=== PATIENT | female | born 1935 | race Caucasian/White ===

== ENCOUNTER 2017-07-27 07:15 | Emergency (ER) | payer OTHER, MEDICARE ==
[~2017-07-27] VITALS: Ht 167.6 cm; Wt 113.4 kg
[~2017-07-27 07:15] MED LIST: ALLOPURINOL300 M1 PO; Benadryl TOP; CLEOCIN HCL300 MG PO; COLCRYS0.6 MG PO; DULOXETINE HCL30 MG PO; ELIQUIS5 M1 PO; ELIQUIS5 MG PO; GABAPENTIN300 MG PO; KEFLEX500 MG PO; LOPRESSOR50 M1 PO; METOPROLOL TART50 M1 PO; METOPROLOL TART50 MG PO; NORCO 325 MG-51 TAB PO; PREDNISONE1 MG PO; PREDNISONE5 M1 PO; PREMARIN 0.60.625 MG PO; PREMARIN 1.251.25 MG PO; TRIAMTERENE AND1 CAP PO; TRIAMTERENE-HC1 EAC2 PO; TRIAMTERENE/HCT1 TA2 PO; VITAMIN B-121000 MC3 PO; VITAMIN B-12500 MC1 SL; ZOFRAN ODT4 MG SL
[2017-07-27 08:14] LABS: ABSOLUTE BASOPHIL COUNT 0.1 /CUMM (0.0-0.2); ABSOLUTE EOSINOPHIL COUNT 0.3 /CUMM (0.0-0.7); ABSOLUTE GRANULOCYTE CT 8.1 /CUMM (1.4-6.5); ABSOLUTE LYMPH COUNT 2.2 /CUMM (1.2-3.4); ABSOLUTE MONOCYTE COUNT 1.1 /CUMM (0.10-0.60); BASOPHIL % 0.6 % (0.0-2.0); EOSINOPHIL % 2.4 % (0-5); GRANULOCYTE % 68.3 % (42.2-75.2); HEMATOCRIT 43.4 % (37-47); MEAN CORPUSCULAR HGB 29.7 PG (27.0-31.0); MEAN CORPUSCULAR HGB CONC 32.7 G/DL (33.0-37.0); MEAN CORPUSCULAR VOLUME 91.1 FL (81.0-99.0); MEAN PLATELET VOLUME 9.1 FL (7.4-10.4); PLATELET COUNT 248 /CUMM (130-400); RBC DISTRIBUTION WIDTH 15.7 % (11.5-14.5); RED BLOOD CELL CT 4.77 /CUMM (4.20-5.40); WHITE BLOOD CELL COUNT 11.8 /CUMM (4.8-10.8)
--- NOTE | 2017-07-27 08:45 | ED SYNCOPE COMPLAINT ---
History of Present Illness General Chief Complaint: General Adult Stated Complaint: BIBA LOW BP Source: patient, family Exam Limitations: no limitations Vital Signs & Intake/Output Vital Signs & Intake/Output Vital Signs Date Time Temp Pulse Resp B/P B/P Pulse O2 O2 Flow FiO2 Mean Ox Delivery Rate 07/27 1450 70 18 150/60 100 Room Air 07/27 1003 97.2 72 18 148/65 98 ED Intake and Output 07/28 0000 07/27 1200 Intake Total 500 Output Total 400 Balance 100 Intake, IV 500 Output, Urine 400 Patient 250 lb Weight Weight Reported by Patient Measurement Method Allergies Coded Allergies: shellfish derived (Severe, ANAPHYLAXIS 02/02/16) Penicillins (RASH 02/02/16) Sulfa (Sulfonamide Antibiotics) (RASH 02/02/16) Reconcile Medications Allopurinol 300 MG TABLET 1 TAB PO DAILY GOUT (Reported) Apixaban (Eliquis) 5 MG TABLET 1 TAB PO BID BLOOD THINNER (Reported) Duloxetine HCl 30 MG CAPSULE.DR 1 TAB PO DAILY DEPRESSION (Reported) Metoprolol Tartrate (Lopressor) 50 MG TABLET 1 TAB PO BID HEART HEALTH Prednisone 5 MG TABLET 1 TAB PO DAILY ARTHRITIS (Reported) Triamterene/Hydrochlorothiazid (Triamterene-Hctz 75-50 MG Tab) 75 MG-50 MG TABLET 0.5 TAB PO DAILY EDEMA (Reported) Triage Note: 81 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 PER EMS, PT HAS HX OF SAME RELATED TO LOW B/P. PT ARRIVES ALERT AND ORIENTED X 4, SPEAKING CLEARLY WITH NO DISTRESS OR DEFICITS NOTED. PT STATES SHE GOT UP FROM THE NIGHT, MOVED TOO QUICKLY AND "PASSED OUT". DENIES FEELING SYMPTOMS PRIOR TO SYNCOPE. DENIES ANY SYMPTOMS AT PRESENT. DENIES C/P. DENIES SOB. DENIES N/V/D. REPORTS NORMAL APPETITE/PO INTAKE. UPON ARRIVAL, UP TO COMMODE AND VOIDS 400 ML DARK CLEAR URINE. RESIDENT INTO EVAL Triage Nurses Notes Reviewed? yes Timing: single episode today Precipitating Factors: lightheadedness Context: became dizzy/fainted Loss of Consciousness: brief (seconds) Associated Symptoms: weakness Patient currently breastfeeds: No HPI: 81yoF w/ hx of hypotension, syncope, Afib (on Elliquis), Gout and HTN who presented s/p 60-90s witnessed syncopal episode. Patient is usually helped out of bed by her daughter in the mornings. She got out of bed too fast this morning and started complaining of mild dizziness. Her daughter helped her back into the bed. She started having repetitive R arm movements and became unresponsive for 60-90s. Event was witnessed without any incontinence, doll's eyes, foaming or clonic movements. She denies anyinjuries, pallor, diaphoresis, chest pain, palpitations , SOB but endorsed weakness, light headedness and inability to respond although she could hear her daughter. Although slow, she was completely A&Ox4. Prior to this event, she had not been sick and currently at this visit she has no complaints or B-symptoms. At baseline she sometimes needs a cane for ambulation independent in her iADLs Her medications include Elliquis, Metop, prednisone and allopurinol. Shx include hysterectomy, appendicitis and cholecystectomy. She has no toxic habits Family (daughter and son-in-law) at bedside (Nimesh Kirby) Past History Travel History Traveled to [place] past 21 day No Medical History Any Pertinent Medical History? see below for history Neurological: vertigo EENT: benign positional vertigo, hearing loss, INNER EAR PROBLEMS Cardiovascular: hypertension, RAPID HEARTBEAT-NOT AFIB! Respiratory: NONE Gastrointestinal: diverticulitis Hepatic: NONE Renal: NONE Musculoskeletal: disk herniation, gout, osteoarthritis, sciatica, REX KNEE REPL Psychiatric: depression Endocrine: NONE Blood Disorders: DVT Cancer(s): NONE METAL RIVETER/Reproductive: NONE History of MRSA: No History of VRE: No History of CDIFF: No Pneumonia Vaccine: 03/08/15 Influenza Vaccine: 02/27/14 Surgical History Surgical History: non-contributory Psychosocial History Who do you live with Daughter Services at Home None What is your primary language Cymro Tobacco Use: Never used Family History Family History, If Any: FATHER FH: diabetes mellitus Hx Contributory? No (Nimesh Kirby) Review of Systems Review of Systems Constitutional: Reports: see HPI, weakness. EENTM: Reports: no symptoms. Respiratory: Reports: no symptoms. Cardiovascular: Reports: no symptoms. GI: Reports: no symptoms. Genitourinary: Reports: no symptoms. Musculoskeletal: Reports: no symptoms. Skin: Reports: no symptoms. Neurological/Psychological: Reports: no symptoms. (Nimesh Kirby) Physical Exam Physical Exam General Appearance: well developed/nourished, alert, awake, comfortable Head: atraumatic Eyes: Bilateral: normal appearance, PERRL. Ears, Nose, Throat: normal pharynx, hearing decreased Neck: normal inspection, supple Respiratory: normal breath sounds, chest non-tender Cardiovascular: regular rate/rhythm Gastrointestinal: normal bowel sounds Extremities: varicose veins Psychiatric: awake, alert, oriented x 3 Cranial Nerves: normal hearing, normal speech, PERRL Skin: intact, warm/dry [place] Coma Score [place] Coma Score Response Value Best Eye Response (Rachel): open spontaneously 4 Best Verbal Response: oriented 5 Best Motor Response: obeys commands 6 Total 15 Core Measures ACS in differential dx? Yes CVA/TIA Diagnosis: No Sepsis Present: No Sepsis Focused Exam Completed? No (Opare-Jabari STUDENT,Nimesh) Progress Differential Diagnosis: drug induced syncope, hyperventilation, orthostatic syncope, pulmonary embolus, seizure, sick sinus syndrome, TIA/CVA, ventricular tach/fib Plan of Care: Orders Procedure Date/time Status Heart Healthy Diet 07/27 D Active Current Medications Sig/Darnell Start time Last Medication Dose Stop Time Status Admin Dicyclomine HCl 40 MG ONCE ONE 07/27 1145 CAN (Bentyl) 07/27 1146 Laboratory Tests 07/27/17 1200: Troponin I < 0.01 Patient w/ witnessed 60-90s witnessed atraumatic syncopal episode. No post-ictal or incontinence. dDx includes but not limited to orthostatic, vasovagal/ vasodepressor, arrhythmia, hypoglycemia, TIA, seizure, drug induced, sick sinus. Normal labs including trops, CMP, CBC, EKG ordered. Orthostatics also ordered. Her machine engineer, Dr. Quinonez, will be consulted 11:30AM Likely syncope 2/2 dehydration/hypovolemia. Patient's orthostatic normal here. She is now s/p 1L NS resuscitation. Exam unchanged except mucosal surfaces not as dry. She is tolerating PO well. Patient reports feeling well. 1st trops negative. Awating 2nd trops Dr. Quinonez agrees with plan. 1:49PM Patient with negative trops x2. She will be discharged home to follow up with her PCP and machine engineer. Return precautions given. Anticipatory guidance given RE hydration/low thirst drive and orthostasis. Arrangements have also been made with homehealth. Her daughter will be out of town for a week. (Nimesh Kirby) REPEAT TROPONIN NEGATIVE. EKG UNCHANGED. EVALUATED BY DR HOLLOWAY IN THE ED. CLEARED FOR DISCHARGE HOME. AMBULATORY WITHOUT DISTRESS OR HYPOTENSION. HOME PT WAS SET UP BY CASE MANAGEMENT. (Kenya Perrin MD) Initial ED EKG: normal axis (Nimesh Kirby) Repeat EKG: unchanged (Kenya Perrin MD) Departure Departure Condition: Stable Referrals: Logan REA,Richard Garber (PCP/Family) Departure Forms: Customer Survey General Discharge Information (Nimesh Kirby) Departure Time of Disposition: 0 Disposition: HOME OR SELF CARE Clinical Impression Primary Impression: Syncope Secondary Impressions: Hypokalemia Additional Instructions: FOLLOW UP WITH DR HOLLOWAY IN THE OFFICE RETURN TO THE ER FOR ANY CHANGING OR WORSENING SYMPTOMS Resident Co-Sign Statement Statement: ED Attending supervision documentation- [X] I saw and evaluated the patient. I have also reviewed all the pertinent lab results and diagnostic results. I agree with the findings and the plan of care as documented in the Resident's documentation. [X] I have reviewed the ED Record and agree with the Resident's documentation. [] Additions or exceptions (if any) to the Resident's note and plan are summarized below: [] (Kenya Perrin MD) [] (Kenya Perrin MD)
[2017-07-27 14:50] VITALS: BP 150/60
== END 2017-07-27 14:51 ==
LOC: ERH 07:15
PROVIDERS: Emergency Medicine
DX: R55 Syncope and collapse (principal); E87.6 Hypokalemia; I10 Essential (primary) hypertension
CPT/HCPCS: 81001; 93005; 93010; 96360; J7040